=== PATIENT | female | born 1945 | race Caucasian/White ===

== ENCOUNTER → 2019-07-19 09:43 | Outpatient (CLI) | payer OTHER, SELFPAY ==
[2019-07-19 11:19] LABS: Ferritin 315 ng/mL (8-252); Iron 75 ug/dL (50-170); Iron Binding Capacity,Total 390 ug/dL (250-450); PERCENT IRON SATURATION 19.2 % (15.0-55.0)
== END ==
PROVIDERS: Family Provider Internal Medicine; PCP Internal Medicine; Referring Provider Psychiatry & Neurology Neurology; Visit Provider Psychiatry & Neurology Neurology
DX: G25.81 Restless legs syndrome (principal)
CPT/HCPCS: 36415; 82728; 83540; 83550